=== PATIENT | female | born 1995 | race Caucasian/White ===

== ENCOUNTER 2024-03-10 01:23 | Emergency (ER) | payer BC ==
[2024-03-10] MEDS ORDERED: NA CHLORIDE 0.9% 1,000 ML ONE (01:59)
[2024-03-10] MEDS ORDERED: ONDANSETRON 4 MG/2 ML VIAL ONE (01:59)
[2024-03-10 02:04] LABS: Absolute Eosinophils 0.3 K/uL (0-0.5); Absolute Lymphocytes (CBC) 0.7 K/uL (0.7-4.9); Absolute Monocytes 0.2 K/uL (0.1-1.3); Absolute Neutrophil 7.9 K/uL (1.8-8.0); Basophils % 0.2 % (0-1.3); Eosinophils % 2.8 % (0-4.4); Hematocrit 38.7 % (36.0-45.0); Hemoglobin 13.1 g/dL (12.0-15.0); Lymphocytes % 8.2 % (15.3-44.8); MCH 30.7 pg (27.0-35.0); MCV 90.5 fL (80-100); MPV 7.7 fL (7.6-11.3); Monocytes % 2.1 % (3.3-12.3); Neutrophils % 86.7 % (41.7-73.7); Nucleated Red Blood Cells % 0.1 % (0-0); Platelets 203 thou/uL (152-406); RBC Red Blood Cell Count 4.27 M/uL (3.86-4.86); Red Cell Distribution Width 13.9 % (12.1-15.2)
[2024-03-10 02:21] LABS: Albumin 3.3 g/dL (3.4-5.0); Albumin/Globulin Ratio 0.8 (1.1-1.8); Anion Gap 11.2 mEq/L (5.0-15.0); Bilirubin Total 0.6 mg/dL (0.2-1.0); Globulin 3.9 g/dL (2.3-3.5); Potassium 3.2 mEq/L (3.5-5.1); Protein, Total 7.2 g/dL (6.4-8.2)
[2024-03-10 02:53] LABS: Urine Bacteria <20 /HPF (<20); Urine Bilirubin NEGATIVE (Negative); Urine Blood Negative (Negative); Urine Clarity Extremely Turbid (Clear); Urine Color Yellow (Yellow); Urine Culture Reflex Order NOT NEEDED; Urine Glucose NEGATIVE (Negative); Urine Ketones 4+ (Over) (Negative); Urine Micro Reflex YN NO BILL MICROSCOPIC; Urine Mucus 4+ /HPF (None Seen); Urine Nitrite NEGATIVE (Negative); Urine Protein 1+ (Negative); Urine RBC <5 /HPF (None Seen); Urine Urobilinogen Normal (Normal); Urine WBC <5 /HPF (<5); Urine pH 5.5 (5.0-7.0)
--- NOTE | 2024-03-10 03:07 | ER ---
Nurse's Notes [facility] Name: Jessica Boyer Age: 28 yrs Sex: Female : 1995 Arrival Date: 03/10/2024 Time: : Bed 17 Private MD: Diagnosis: Nausea with vomiting, unspecified;Diarrhea, unspecified Presentation: 03/10 01:43 Chief complaint: Patient states: STARTED VOMITING AROUND 9 PM AFTER EATING [place], vc1 NOW I HAVE DIARRHEA. Coronavirus screen: Client denies travel out of the [place] in the last 14 days. At this time, the client does not indicate any symptoms associated with coronavirus-19. Ebola Screen: Patient negative for fever greater than or equal to 101.5 degrees Fahrenheit, and additional compatible Ebola Virus Disease symptoms Patient denies exposure to infectious person. Patient denies travel to an Ebola-affected area in the 21 days before illness onset. No symptoms or risks identified at this time. Initial Sepsis Screen: Does the patient meet any 2 criteria? No. Patient's initial sepsis screen is negative. Does the patient have a suspected source of infection? No. Patient's initial sepsis screen is negative. Risk Assessment: Do you want to hurt yourself or someone else? Patient reports no desire to harm self or others. Onset of symptoms was March 09, 2024 at 21:00. 01:43 Method Of Arrival: Ambulatory vc1 01:43 Acuity: RENETTA 3 vc1 Triage Assessment: 01:49 General: Appears in no apparent distress. uncomfortable, slender, well groomed, well vc1 developed, Behavior is calm, cooperative, appropriate for age, Reports feeling ill for 0-12 hours. Pain: Complains of pain in right upper quadrant and left upper quadrant Pain does not radiate. Also complains of nausea, V/D. EENT: No deficits noted. No signs and/or symptoms were reported regarding the EENT system. Neuro: Level of Consciousness is awake, alert, obeys commands, Oriented to person, place, time, situation, Appropriate for age. Cardiovascular: Capillary refill < 3 seconds Patient's skin is warm and dry. Respiratory: Airway is patent Respiratory effort is even, unlabored, Respiratory pattern is regular, symmetrical. GI: Reports upper abdominal pain, cramping, diarrhea, nausea, vomiting. GI: Abdomen is round non-distended. : No deficits noted. No signs and/or symptoms were reported regarding the genitourinary system. Derm: Skin is intact, is healthy with good turgor, Skin is dry, Skin is normal, Skin temperature is warm. Musculoskeletal: Circulation, motion, and sensation intact. Range of motion: intact in all extremities. 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 - Infectious Disease History:: Denies. - Social history:: Smoking status: Patient denies any tobacco usage or history of. - Family history:: not pertinent. Screenin:48 [facility] ED Fall Risk Assessment (Adult) History of falling in the last 3 months, vc1 including since admission No falls in past 3 months (0 pts) Confusion or Disorientation No (0 pts) Intoxicated or Sedated No (0 pts) Impaired Gait No (0 pts) Mobility Assist Device Used No (0 pt) Altered Elimination No (0 pt) Score/Fall Risk Level 0 - 2 = Low Risk Oriented to surroundings, Maintained a safe environment, Educated pt \T\ family on fall prevention, incl call for assistance when getting out of bed. Abuse screen: Denies threats or abuse. Nutritional screening: No deficits noted. Tuberculosis screening: No symptoms or risk factors identified. Assessment: 01:36 General: Appears in no apparent distress. Behavior is calm, cooperative, appropriate rg5 for age. 01:36 Pain: Complains of pain in abdomen Pain currently is 5 out of 10 on a pain scale. rg5 Quality of pain is described as crampy. Neuro: Level of Consciousness is awake, alert, obeys commands, Oriented to person, place, time, situation. Cardiovascular: Heart tones S1 S2 Patient's skin is warm and dry. Respiratory: Airway is patent Trachea midline Respiratory effort is even, unlabored, Respiratory pattern is regular, symmetrical. GI: Abdomen is round Pt is actively vomiting Abd is soft and non tender Reports nausea, vomiting. : No signs and/or symptoms were reported regarding the genitourinary system. EENT: No deficits noted. Derm: Skin is intact, Skin is dry, Skin is normal, Skin temperature is warm. Musculoskeletal: Circulation, motion, and sensation intact. Range of motion: intact in all extremities. 02:35 Reassessment: Patient and/or family updated on plan of care and expected duration. Pain rg5 level reassessed. Patient is alert, oriented x 3, equal unlabored respirations, skin warm/dry/pink. 03:15 Reassessment: Patient and/or family updated on plan of care and expected duration. Pain rg5 level reassessed. Patient is alert, oriented x 3, equal unlabored respirations, skin warm/dry/pink. Patient states feeling better. Patient states symptoms have improved. Vital Signs: 01:43 BP 105 / 57; Pulse 118; Resp 14; Pulse Ox 100% ; Weight 64.41 kg; Height 5 ft. 6 in. ; vc1 02:05 BP 111 / 73; Pulse 110; Resp 18; Pulse Ox 100% on R/A; rg5 02:49 BP 107 / 67; Resp 17; Pulse Ox 97% on R/A; Pain 0/10; rg5 03:00 BP 109 / 69; Pulse 100; Resp 17; Temp 98(O); Pulse Ox 100% on R/A; rg5 01:43 Body Mass Index 22.92 (64.41 kg, 167.64 cm) vc1 02:49 Pain Scale: Adult rg5 ED Course: 01:27 Patient arrived in ED. gm2 01:27 Jh Marin MD is Attending Physician. rt 01:36 No provider procedures requiring assistance completed. Inserted saline lock: 20 gauge rg5 in right antecubital area, using aseptic technique. Blood collected. Flushed with 10 mL NS. 01:39 Kai Frost, GÉNESIS is Primary Nurse. rg5 01:46 Triage completed. vc1 01:48 Arm band placed on right wrist. vc1 01:49 Patient has correct armband on for positive identification. Bed in low position. Call vc1 light in reach. Pulse ox on. NIBP on. 03:29 Provided Education on: post er care. rg5 03:29 IV discontinued, bleeding controlled, No redness/swelling at site. Pressure dressing rg5 applied. Administered Medications: 01:50 Drug: NS 0.9% IV 1000 ml IV at 1000 ml once; to be given as a bolus over 60 minutes rg5 Route: IV; Rate: 1000 ml; Site: right antecubital; 03:00 Follow up: IV Status: Completed infusion; IV Intake: 1000ml rg5 01:50 Drug: Ondansetron IVP 4 mg IVP once; over 2 minutes Route: IVP; Site: right antecubital;rg5 02:05 Follow up: Response: No adverse reaction rg5 Medication: 01:51 VIS not applicable for this client. vc1 Intake: 03:00 IV: 1000ml; Total: 1000ml. rg5 Outcome: 03:06 Discharge ordered by . rt 03:30 Discharged to home ambulatory, rg5 03:30 Condition: stable 03:30 Discharge instructions given to patient, Instructed on discharge instructions, Demonstrated understanding of instructions, follow-up care, Prescriptions given X 1, 03:30 Patient left the ED. rg5 Signatures: Ida Garcia RN RN vc1 Jh Marin MD MD rt Sophia Orourke gm2 Kai Frost, GÉNESIS RN rg5 Corrections: (The following items were deleted from the chart) 01:48 01:46 PMHx: None; vc1 vc1 01:48 01:46 PSHx: None; vc1 vc1
--- NOTE | 2024-03-10 03:07 | EDPHYS ---
Physician Documentation [facility] Name: Jessica Boyer Age: 28 yrs Sex: Female : 1995 Arrival Date: 03/10/2024 Time: : Bed 17 Private MD: ED Physician Jh Marin HPI: 03/10 03:51 This 28 yrs old Female presents to ER via Ambulatory with complaints of Nausea/Vomiting.rt 03:51 Patient who is about 18 weeks presents to the ED with nausea, vomiting, rt diarrhea after eating [place] food this evening. Denies abdominal pain. Denies other acute complaints at this time, symptoms are moderate in severity, no other aggravating alleviating factors.. 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 - Infectious Disease History:: Denies. - Social history:: Smoking status: Patient denies any tobacco usage or history of. - Family history:: not pertinent. ROS: 03:51 Constitutional: Negative for fever, chills, and weight loss, Cardiovascular: Negative rt for chest pain, palpitations, and edema, Respiratory: Negative for shortness of breath, cough, wheezing, and pleuritic chest pain, MS/Extremity: Negative for injury and deformity, Skin: Negative for injury, rash, and discoloration, Neuro: Negative for headache, weakness, numbness, tingling, and seizure, 03:51 Abdomen/GI: Positive for nausea and vomiting, Negative for abdominal pain, Exam: 03:51 Constitutional: This is a well developed, well nourished patient who is awake, alert, rt and in no acute distress. Head/Face: Normocephalic, atraumatic. Chest/axilla: Normal chest wall appearance and motion. Nontender with no deformity. No lesions are appreciated. Cardiovascular: Regular rate and rhythm with a normal S1 and S2. No gallops, murmurs, or rubs. Normal PMI, no JVD. No pulse deficits. Respiratory: Lungs have equal breath sounds bilaterally, clear to auscultation and percussion. No rales, rhonchi or wheezes noted. No increased work of breathing, no retractions or nasal flaring. Abdomen/GI: Soft, non-tender, with normal bowel sounds. No distension or tympany. No guarding or rebound. No evidence of tenderness throughout. Skin: Warm, dry with normal turgor. Normal color with no rashes, no lesions, and no evidence of cellulitis. MS/ Extremity: Pulses equal, no cyanosis. Neurovascular intact. Full, normal range of motion. Neuro: Awake and alert, GCS 15, oriented to person, place, time, and situation. Cranial nerves II-XII grossly intact. Motor strength 5/5 in all extremities. Sensory grossly intact. Cerebellar exam normal. Normal gait. Vital Signs: 01:43 BP 105 / 57; Pulse 118; Resp 14; Pulse Ox 100% ; Weight 64.41 kg; Height 5 ft. 6 in. ; vc1 02:05 BP 111 / 73; Pulse 110; Resp 18; Pulse Ox 100% on R/A; rg5 02:49 BP 107 / 67; Resp 17; Pulse Ox 97% on R/A; Pain 0/10; rg5 03:00 BP 109 / 69; Pulse 100; Resp 17; Temp 98(O); Pulse Ox 100% on R/A; rg5 01:43 Body Mass Index 22.92 (64.41 kg, 167.64 cm) vc1 02:49 Pain Scale: Adult rg5 MDM: 01:36 Medical Screening Exam initiated rt 03:51 Differential diagnosis: Gastroenteritis, electrolyte disturbance. Data reviewed: vital rt signs, nurses notes, lab test result(s). I considered the following discharge prescriptions or medication management in the emergency department Medications were administered in the Emergency Department. See MAR. Test considered but Not performed: CT: Patient is , symptoms significantly improving with medicines in the ED, benign labs, CT scan is not indicated. Counseling: I had a detailed discussion with the patient and/or guardian regarding the historical points, exam findings, and any diagnostic results supporting the discharge/admit diagnosis, lab results, the need for outpatient follow up, to return to the emergency department if symptoms worsen or persist or if there are any questions or concerns that arise at home. Response to treatment: the patient's symptoms have markedly improved after treatment. 03/10 01:43 Order name: CBC with Diff rt 03/10 01:43 Order name: CMP; Complete Time: 03:01 rt 03/10 01:43 Order name: UAM; Complete Time: 03:01 rt Administered Medications: 01:50 Drug: NS 0.9% IV 1000 ml IV at 1000 ml once; to be given as a bolus over 60 minutes rg5 Route: IV; Rate: 1000 ml; Site: right antecubital; 03:00 Follow up: IV Status: Completed infusion; IV Intake: 1000ml rg5 01:50 Drug: Ondansetron IVP 4 mg IVP once; over 2 minutes Route: IVP; Site: right antecubital;rg5 02:05 Follow up: Response: No adverse reaction rg5 Disposition Summary: 03/10/24 03:06 Discharge Ordered Notes: Location: Home rt Problem: new rt Symptoms: have improved rt Condition: Stable rt Diagnosis - Nausea with vomiting, unspecified rt - Diarrhea, unspecified rt Followup: rt - With: Private Physician - When: 2 - 3 days - Reason: Discharge Instructions: - Discharge Summary Sheet rt - Diarrhea, Adult rt - Nausea and Vomiting, Adult rt Forms: - Medication Reconciliation Form rt - Antibiotic Education rt - Prescription Opioid Use rt - Patient Portal Instructions rt - Leadership Thank You Letter rt Prescriptions: - ondansetron 4 mg Oral Tablet,disintegrating - take 1 tablet ORAL route every 6 hours as needed for nausea; 18 tablet; rt Refills: 0, Product Selection Permitted Signatures: Dispatcher [employer] EDWA dIa Garcia RN RN vc1 Jh Marin MD MD rt Kai Frost, RN RN rg5 Corrections: (The following items were deleted from the chart) 01:48 01:46 PMHx: None; vc1 vc1 01:48 01:46 PSHx: None; vc1 vc1
[2024-03-10 03:48] LABS: Blood Morphology Comment NOT SEEN (NOT SEEN); Platelet Estimate ADEQ; White Blood Cell Scan OK (OK)
[2024-03-10 05:10] VITALS: BP 109/69; TEMP 98; O2SAT 100
== END 2024-03-10 03:30 | disposition home or self-care (01) ==
LOC: ER 01:23
DX: O26.892 Other specified pregnancy related conditions, second trimester (principal); R11.2 Nausea with vomiting, unspecified; R19.7 Diarrhea, unspecified; Z3A.18 18 weeks gestation of pregnancy
CPT/HCPCS: 96361; 85025; 81001; 36415; 80053; 96374; 99284; J2405; J7030